=== PATIENT | female | born 1980 | race Caucasian/White ===

== ENCOUNTER → 2017-02-25 | Outpatient (CLI) | payer MEDICAID ==
[~2017-02-25] MED LIST: ADIPEX-P37.5 M2 PO; APAP/HYDROCODON1 TA9 PO; ESCITALOPRAM10 M1 PO; ETODOLAC200 MG PO; GABAPENTIN 600600 MG PO; GOOD SENSE OMEP20 MG PO; IBU800 M1 PO; IBU800 MG PO; IBUPROFEN800 MG PO; LEVAQUIN750 MG PO; LEXAPRO20 M1 PO; LISINOPRIL 5MG T5 MG PO; LORTAB 7.5/3251 TAB PO; NORCO 325 MG-101 TAB PO; NORCO 325 MG-51 TAB PO; PERCOCET 10 MG1 EACH PO; PERCOCET 325 MG1 TA4 PO; PERCOCET 5/3251 EACH PO; PHENTERMINE H37.5 M1 PO; VALIUM 5MG TABLE5 MG PO; ZANTAC 150150 MG PO
[2017-02-25 13:36] LABS: HEMOGLOBIN 15.9 g/dL (12.2-16.2); LYMPH # 2.6 K/mm3 (0.7-4.5); LYMPH % 28.5 % (10-50.0)
[2017-02-25 13:49] LABS: BUN 13 mg/dL (7-18)
[2017-02-25 13:50] LABS: GFR (ESTIMATED) 50 ML/MIN (59-)
[2017-02-26 08:39] LABS: RA Latex Turbid. <10.0 IU/mL (0.0-13.9)
[2017-02-28 16:41] LABS: Antinuclear Antibodies, IFA Negative (.)
== END ==
LOC: LAB 13:22
PROVIDERS: Emergency Medicine
DX: M25.50 Pain in unspecified joint (principal)

== ENCOUNTER → 2017-03-17 | Outpatient (CLI) | payer MEDICAID ==
--- NOTE | 2017-03-18 08:50 | RADIOLOGY REPORT PS360 ---
CT ABD PELVIS W/ CONTRAST CLINICAL INDICATION: Left lower quadrant pain, lower abdominal pain MASS LLQ, ? HERNIA ORDERING PHYSICIAN: Costa Collado MD PATIENT AGE: 36 years COMPARISON: None TECHNIQUE: Axial images obtained with sagittal and coronal reformats. PROCEDURE: Oral Contrast: Redicat IV Contrast: 75 mL's of Isovue-370. FINDINGS: Lower thorax: No acute finding ABDOMEN/PELVIS: Prior cholecystectomy without ductal dilatation. The liver, spleen, adrenal glands, and pancreas have an unremarkable appearance. No hydronephrosis, renal mass, or obstructing renal or ureteral calculi. There is mild cortical scarring of the left kidney. There are a few small retroperitoneal lymph nodes but no adenopathy. Unremarkable appendix. No intestinal obstruction or free air. A persistent hernia defect is present in the left lower quadrant along the lateral aspect of the rectus abdominis. The hernia is just medial to the semilunar line. There is some stranding of the subcutaneous fat in this region as well. Has there been prior abdominal surgery at this region?. The hernia does contain small bowel and peritoneal fat. No evidence of bowel obstruction. There has been a prior hysterectomy. No pelvic mass or abnormal fluid collection or focal inflammatory changes evident. No acute bony anomalies. IMPRESSION: Left lower quadrant abdominal wall hernia along the lateral aspect of the rectus abdominis muscle. This contains small bowel and peritoneal fat. No evidence of bowel obstruction. The findings are not significantly changed from 11/29/2016
== END ==
LOC: RAD 09:00
DX: R19.04 Left lower quadrant abdominal swelling, mass and lump (principal)
CPT/HCPCS: Q9967